=== PATIENT | female | born 2005 | race Native Hawaiian/Other Pacific Islander ===

== ENCOUNTER → 2024-10-07 | Outpatient (CLI) | payer OTHER | LOC: LAB SHORT 13:57 → LAB 13:57 | DX: N92.1 Excessive and frequent menstruation with irregular cycle (principal) | CPT/HCPCS: 87086; 87147 ==

== ENCOUNTER → 2025-06-13 | Outpatient (CLI) | payer OTHER, BC | LOC: LAB 15:49 → LAB SHORT 15:49 | DX: R10.9 Unspecified abdominal pain (principal) | CPT/HCPCS: 87086 ==

== ENCOUNTER 2025-07-14 13:13 | Day surgery (SDC) | payer OTHER, BC ==
[~2025-07-14] VITALS: Ht 165.1 cm; Wt 64.9 kg
[2025-07-14] VITALS (7 sets, daily range): BP systolic 96–111; BP diastolic 63–87
[~2025-07-14 13:13] MED LIST: ALBU90OI INH; GABA300 PO; SERT50 PO
[2025-07-14] MEDS ORDERED: Bupivacaine 0.5% W/EPI 1:200000 SDV 30 ML Vial ONE (13:17)
[2025-07-14] MEDS ORDERED: FentaNYL Citrate 50 MCG/ML 2 ML Injection ONE (13:44)
[2025-07-14] MEDS ORDERED: Midazolam HCl 1MG / ML 2ML Vial ONE (13:45)
[2025-07-14] MEDS ORDERED: Ipratropium/Albuterol SulF 2.5-0.5MG/3 ML Amp INH SCH (13:45)
--- NOTE | 2025-07-14 13:47 | NUR ---
History, Chart, Medications and Allergies reviewed before start of procedure. Pre-Op teaching done. Pt verbalizes understanding. Patient confirms NPO status and agrees with scheduled surgery.
[2025-07-14] MEDS ORDERED: Dexamethasone Sod Phos 10 MG/ML 1ML VIAL ONE (14:08)
[2025-07-14] MEDS ORDERED: HYDROmorphone HCl/Pf 1MG SYR ONE (14:11)
[2025-07-14] MEDS ORDERED: Ondansetron HCl 2 MG / ML 2ML Vial ONE (14:32)
--- NOTE | 2025-07-14 16:31 | NUR ---
DISCHARGE NOTE PT A&OX4, BREATHING RA, VSS, PT HAS NO COMPLAINTS, MOM AT BEDSIDE. ICE TO SURGICAL SITE. PT TOLERATING PO FLUIDS. NO NAUSEA OR PAIN. PT UP TO BR, VOIDED. DRESSED INDEPENDENTLY. Patient up to Ambulate independently. Gait steady. Discharge instructions reviewed with patient. Patient verbalizes understanding. Copy given to patient to take home. Dressing to procedure site clean, dry, intact with no visible drainage, swelling, erythema or bruising noted. Discharged via wheelchair to private car for ride home.
== END 2025-07-14 16:22 | disposition home or self-care (01) ==
LOC: ORSCMMR 13:13 → ORD 14:30 → ORSCMMR 16:22
PROVIDERS: Obstetrics & Gynecology
PROC: 0HBAXZZ Excision of Inguinal Skin, External Approach (ICD-10-PCS; principal; 2025-07-14 14:30)
DX: L72.0 Epidermal cyst (principal); J45.20 Mild intermittent asthma, uncomplicated; F41.8 Other specified anxiety disorders; G25.81 Restless legs syndrome; Z79.899 Other long term (current) drug therapy; Z87.891 Personal history of nicotine dependence
CPT/HCPCS: 86850; 86900; 86901; 88305; J1100; J1171; J2250; J2405; J2704; J3010; J7120